=== PATIENT | male | born 1975 ===

== ENCOUNTER 2017-12-07 14:16 | Emergency (ER) | payer OTHER ==
[~2017-12-07] VITALS: Ht 162.6 cm; Wt 95.3 kg
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
[2017-12-07] MEDS ORDERED: LR(*) 1000 ML BAG 1,000 ML IV ONE (14:30)
[2017-12-07] MEDS ORDERED: fentaNYL CITR 100 MCG/2 ML AMP IVP ONE (14:30)
[2017-12-07] MEDS ORDERED: NS 0.9% 50 ML VIAL 100 ML ONE (14:42)
[2017-12-07] MEDS ORDERED: IOPAMIDOL 76% 100 ML INFUS BTL 100 ML ONE (14:42)
--- NOTE | 2017-12-07 14:46 | EKG ---
FACILITY: [facility] PATIENT NAME: AMNA WHITE : [id number] MR: [id number] V: [id number] EXAM DATE: ORDERING PHYSICIAN: JESSICA FREED TECHNOLOGIST: Amauri Burciaga Reason : Blood Pressure : / mmHG Vent. Rate : 101 BPM Atrial Rate : 101 BPM P-R Int : 138 ms QRS Dur : 084 ms QT Int : 360 ms P-R-T Axes : 051 035 024 degrees QTc Int : 466 ms Sinus tachycardia Possible left atrial enlargement Nonspecific ST findings No previous ECGs available Confirmed by ROSEMARY NAZARIO ([id number] on 12/08/2017 6:06:30 AM Referred By: Confirmed By:ROSEMARY NAZARIO
[2017-12-07] MEDS ORDERED: DIPHTH/TETANUS/ACEL. PERTUSSIS IM ONLY ONE (14:55)
[2017-12-07 14:57] LABS: PLATELET COUNT, AUTOMATED 199 K/uL (150-450)
[2017-12-07 15:43] LABS: INR 0.97
--- NOTE | 2017-12-07 16:56 | RADIOLOGY IMAGING REPORT ---
FACILITY: [facility] PATIENT NAME: Scott Choe : 1975 MR: [id number] V: [id number] EXAM DATE: ORDERING PHYSICIAN: JESSICA RFEED TECHNOLOGIST: Location: [facility] Patient: Scott Choe : 1975 Visit/Account:[id number] Date of Sevice: 12/07/2017 EXAMINATION: CT chest with IV contrast CT abdomen with IV contrast CT pelvis with IV contrast HISTORY: Trauma. TECHNIQUE: Spiral scan was obtained through the chest, abdomen and pelvis during injection of nonio vicente iodinated intravenous contrast. Sagittal and coronal reformatted images are also submitted. One of the following dose optimization techniques was utilized in the performance of this exam: Autom ated exposure control; adjustment of the mA and/or kV according to the patient's size; or use of an i terative reconstruction technique. Specific details can be referenced in the facility's radiology C T exam operational policy. CONTRAST: 100 mL of IV Isovue-370. COMPARISON: None. FINDINGS: CT THORAX: Lungs / pleura: No focal consolidation, pleural effusion or pneumothorax. No discrete nodule or foca l interstitial opacities. Airways are clear. Mediastinum / benitez: No enlarged lymph nodes or abnormal density. Heart / pericardium: Normal size without pericardial effusion. Vessels: Aorta shows no aneurysm or dissection. Pulmonary arteries are grossly normal. Musculoskeletal / Body wall: No acute fractures or discrete lesions. Chest wall shows no enlarged ax illary lymph nodes or masses. CT ABDOMEN AND PELVIS: Liver / biliary: Liver shows no focal abnormality. The gallbladder and biliary system are unremarkabl e. Pancreas: Negative. Spleen: Negative. Adrenal glands: Negative. Kidneys: Negative. Pelvic structures: Negative. Bowel: Visualized gastrointestinal tract, including the appendix, within normal limits. Peritoneum / retroperitoneum / mesenteries: No free air, free fluid, fluid collections or areas of in flammation. Small umbilical hernia and bilateral inguinal hernias containing fat. Vessels: Negative. Musculoskeletal / Body wall: No acute fracture or discrete bony lesions. Bilateral pars defect L5 lev el without spondylolisthesis. Lymph node assessment: Negative. IMPRESSION: No indication of traumatic injury or acute abnormality to the chest, abdomen or pelvis. Report Dictated By: Keven Gray at 12/07/2017 4:44 PM Report E-Signed By: Keven Gray at 12/07/2017 4:53 PM WSN:[id number]
--- NOTE | 2017-12-07 16:58 | RADIOLOGY IMAGING REPORT ---
FACILITY: [facility] PATIENT NAME: Scott Choe : 1975 MR: [id number] V: [id number] EXAM DATE: ORDERING PHYSICIAN: JESSICA FREED TECHNOLOGIST: Location: [facility] [place] Patient: Scott Choe : 1975 Visit/Account:[id number] Date of Sevice: 12/07/2017 CT OF THE BRAIN AND CERVICAL SPINE WITHOUT CONTRAST HISTORY: Trauma PROCEDURE: 3.0 mm contiguous axial sections were performed through the brain AND 2.0 mm axial images were obtained through the cervical spine. Sagittal and coronal reformats were submitted. FINDINGS: BRAIN: Brain and intracranial structures: There is no mass lesion, hemorrhage or acute infarct. Orbits (included portions): Normal. Scalp: Normal. Skull: Normal. Paranasal sinuses and mastoid air cells (included portions): Mild mucosal thickening in the right sph enoid sinus and ethmoid air cells. C-SPINE: Vertebral body heights are maintained. No fracture or dislocation. No cervical spine fracture or disl ocation. Soft tissues of the neck are unremarkable. The imaged lung apices are clear. IMPRESSION: No evidence of acute intracranial abnormality. No cervical spine fracture or dislocation. One of the following dose optimization techniques was utilized in the performance of this exam: Autom ated exposure control; adjustment of the mA and/or kV according to the patient's size; or use of an i terative reconstruction technique. Specific details can be referenced in the facility's radiology C T exam operational policy. Report Dictated By: Nancy Luna MD at 12/07/2017 4:37 PM Report E-Signed By: Nancy Luna MD at 12/07/2017 4:54 PM WSN:[id number]
--- NOTE | 2017-12-07 16:58 | RADIOLOGY IMAGING REPORT ---
FACILITY: [facility] PATIENT NAME: Scott Choe : 1975 MR: [id number] V: [id number] EXAM DATE: ORDERING PHYSICIAN: JESSICA FREED TECHNOLOGIST: Location: [facility] [place] Patient: Scott Choe : 1975 Visit/Account:[id number] Date of Sevice: 12/07/2017 CT OF THE BRAIN AND CERVICAL SPINE WITHOUT CONTRAST HISTORY: Trauma PROCEDURE: 3.0 mm contiguous axial sections were performed through the brain AND 2.0 mm axial images were obtained through the cervical spine. Sagittal and coronal reformats were submitted. FINDINGS: BRAIN: Brain and intracranial structures: There is no mass lesion, hemorrhage or acute infarct. Orbits (included portions): Normal. Scalp: Normal. Skull: Normal. Paranasal sinuses and mastoid air cells (included portions): Mild mucosal thickening in the right sph enoid sinus and ethmoid air cells. C-SPINE: Vertebral body heights are maintained. No fracture or dislocation. No cervical spine fracture or disl ocation. Soft tissues of the neck are unremarkable. The imaged lung apices are clear. IMPRESSION: No evidence of acute intracranial abnormality. No cervical spine fracture or dislocation. One of the following dose optimization techniques was utilized in the performance of this exam: Autom ated exposure control; adjustment of the mA and/or kV according to the patient's size; or use of an i terative reconstruction technique. Specific details can be referenced in the facility's radiology C T exam operational policy. Report Dictated By: Nancy Luna MD at 12/07/2017 4:37 PM Report E-Signed By: Nancy Luna MD at 12/07/2017 4:54 PM WSN:[id number]
[2017-12-07 17:00] VITALS: BP 160/103
--- NOTE | 2017-12-07 17:03 | RADIOLOGY IMAGING REPORT ---
FACILITY: [facility] [place] PATIENT NAME: Scott Choe : 1975 MR: [id number] V: [id number] EXAM DATE: ORDERING PHYSICIAN: JESSICA FREED TECHNOLOGIST: Location: [facility] Patient: Scott Choe : 1975 Visit/Account:[id number] Date of Sevice: 12/07/2017 INDICATION: trauma. DATE: 12/07/2017 4:54 PM. TECHNIQUE: FEMUR LEFT COMPARISON: None FINDINGS: Femur: No femoral fracture. IMPRESSION: No femur fracture. Report Dictated By: Nancy Luna MD at 12/07/2017 4:54 PM Report E-Signed By: Nancy Luna MD at 12/07/2017 4:59 PM WSN:[id number]
--- NOTE | 2017-12-07 17:19 | RADIOLOGY IMAGING REPORT ---
FACILITY: [facility] [place] PATIENT NAME: Scott Choe : 1975 MR: [id number] V: [id number] EXAM DATE: ORDERING PHYSICIAN: JESSICA FREED TECHNOLOGIST: Location: [facility] Patient: Scott Choe : 1975 Visit/Account:[id number] Date of Sevice: 12/07/2017 TIBIA FIBULA LEFT COMPARISON: None. HISTORY: :trauma TECHNIQUE: 2 views of the left tibia and fibula were obtained. FINDINGS: BONES: No acute fracture or malalignment in the tibia or fibula. No gross abnormality in the visual ized ankle. Calcaneal height is preserved, although the calcaneus is incompletely imaged. SOFT TISSUES: Negative. No visible soft tissue swelling. EFFUSION: None visible. OTHER: Negative. IMPRESSION: No acute fracture or malalignment. Negative left lower leg. Report Dictated By: Javier Healy at 12/07/2017 5:11 PM Report E-Signed By: Javier Healy at 12/07/2017 5:13 PM WSN:[id number]
== END 2017-12-07 17:41 | disposition home or self-care (01) ==
LOC: ER 14:21
DX: S80.12XA Contusion of left lower leg, initial encounter (principal); R00.0 Tachycardia, unspecified; M25.552 Pain in left hip; F10.920 Alcohol use, unspecified with intoxication, uncomplicated
CPT/HCPCS: 70450; 71260; 72125; 73552; 73590; 74177; 80305; 80320; 81001; 82150; 83605; 83690; 85025; 85610; 85730; 93005; 96361; 96374; 99284; J3010; J7050; J7120; L0172; Q9967; 82040; 82247; 82310; 82374; 82435; 82565; 82947; 84075; 84132; 84155; 84295; 84450; 84460; 84520